=== PATIENT | male | born 2000 | race Caucasian/White ===

== ENCOUNTER 2021-01-06 17:36 | Emergency (ER) | payer BC ==
[~2021-01-06] VITALS: Ht 203.2 cm; Wt 82.3 kg
[2021-01-06] MEDS ORDERED: haloperidol lactate 5mg/ml inj IM ONE (18:15)
[2021-01-06] MEDS ORDERED: ondansetron/PF 4mg/2ml inj IV ONE (18:15)
[2021-01-06] MEDS ORDERED: diphenhydrAMINE 50 mg/ml inj IM ONE (18:15)
[2021-01-06] MEDS ORDERED: normal saline 1000ML IV soln IVB ONE (18:15)
[2021-01-06 18:42] VITALS: BP 123/71
[2021-01-06 19:03] LABS: BASOPHILS % (AUTO) 0.1 % (0-1); EOSINOPHILS % (AUTO) 0.2 % (0-6); HEMATOCRIT 49.4 % (42.0-52.0); HEMOGLOBIN 16.8 g/dl (14.0-17.9); LYMPHOCYTES # (AUTO) 1.9 X10'3 (1.1-4.8); MEAN CORPUSCULAR VOLUME 88.2 FL (78-98); MEAN PLATELET VOLUME 9.6 FL (7.4-10.4); MONOCYTES # (AUTO) 0.6 X10'3 (0-0.9); MONOCYTES % (AUTO) 4.8 % (2-12); NEUTROPHILS # (AUTO) 10.1 X10'3 (1.8-7.7); NEUTROPHILS % (AUTO) 79.9 % (42-75); PLATELET COUNT 226 X10'3 (140-440); RED CELL DISTRIBUTION WIDTH 13.3 % (11.5-14.5); WHITE BLOOD COUNT 12.6 X10'3 (4.5-11.0)
[2021-01-06 19:09] LABS: ALANINE AMINOTRANSFERASE 26 U/L (12-78); ALBUMIN 4.6 G/DL (3.4-5.0); ALBUMIN/GLOBULIN RATIO 1.4 (1.1-1.5); ALKALINE PHOSPHATASE 91 IU/L (46-116); ANION GAP 10 (8-16); ASPARTATE AMINO TRANSFERASE 16 U/L (10-37); BILIRUBIN,TOTAL 0.9 MG/DL (0.1-1.0); BLOOD UREA NITROGEN 13 MG/DL (7-18); BUN/CREATININE RATIO 11.9 (5.4-32.0); CHLORIDE 101 MMOL/L (99-107); CREATININE 1.09 MG/DL (0.60-1.10); GLUCOSE 104 MG/DL (70-104); LIPASE < 50 U/L (73-393); MAGNESIUM 2.1 MG/DL (1.5-2.4); POTASSIUM 3.1 MMOL/L (3.5-5.1); SODIUM 139 MMOL/L (135-145); TOTAL CARBON DIOXIDE 27.6 MMOL/L (24-32); eGFR 85 ML/MIN
[2021-01-06] MEDS ORDERED: potassium Cl 20 mEq SR tablet PO ONE (19:25)
[2021-01-06] MEDS ORDERED: ONDA4TAB6 PO (19:25)
== END 2021-01-06 19:40 | disposition home or self-care (01) ==
LOC: ER 17:37
DX: R11.2 Nausea with vomiting, unspecified (principal); R10.13 Epigastric pain; E87.6 Hypokalemia; F12.90 Cannabis use, unspecified, uncomplicated; Z72.89 Other problems related to lifestyle; Z98.890 Other specified postprocedural states
CPT/HCPCS: 36415; 80053; 83690; 83735; 85025; 96361; 96372; 96374; 99284; J1200; J1630; J2405; J7030

== ENCOUNTER 2021-07-17 17:08 | Emergency (ER) | payer BC ==
[~2021-07-17] VITALS: Ht 203.2 cm; Wt 86.4 kg
[~2021-07-17 17:08] MED LIST: ONDA4TAB6 PO
[2021-07-17 17:20] VITALS: BP 122/96
== END 2021-07-18 14:52 | disposition left against medical advice (07) ==
LOC: ER 17:09
DX: R10.9 Unspecified abdominal pain (principal); R11.10 Vomiting, unspecified; Z53.21 Procedure and treatment not carried out due to patient leaving prior to being seen by health care provider